=== PATIENT | female | born 1985 | race Caucasian/White ===

== ENCOUNTER 2017-09-05 10:52 | Emergency (ER) | payer OTHER ==
[~2017-09-05] VITALS: Ht 157.5 cm; Wt 47.6 kg
[2017-09-05 10:55] VITALS: BP 139/80
--- NOTE | 2017-09-05 11:15 | NUR ---
31/F BIB SELF C/O BRUISE ON RIGHT SIDE ABDOMEN WITH PAIN WHEN MOVING SINCE MONDAY , WHILE AT WORK.PATIENT PRESENTS TO ED WITH . PT STATES . DENIES N/V/D; AAOX4 WITH EVEN AND STEADY GAIT; LUNGS CLEAR BL; PT DENIES ANY FEVER, CP, SOB, OR COUGH AT THIS TIME; PATIENT STATES PAIN OF 0/10 AT THIS TIME; PATIENT POSITIONED FOR COMFORT; HOB ELEVATED; BEDRAILS UP X2; BED DOWN. ER MD MADE AWARE OF PT STATUS.
--- NOTE | 2017-09-05 11:20 | NUR ---
Patient being evaluated by DR TERRY at bedside.
[2017-09-05 11:28] VITALS: BP 122/78
== END 2017-09-05 11:28 | disposition home or self-care (01) ==
LOC: MED 10:52
DX: S30.1XXA Contusion of abdominal wall, initial encounter (principal); F12.10 Cannabis abuse, uncomplicated; X50.0XXA Overexertion from strenuous movement or load, initial encounter; Y93.89 Activity, other specified; Y92.89 Other specified places as the place of occurrence of the external cause; Y99.8 Other external cause status
CPT/HCPCS: 99282